=== PATIENT | male | born 1975 | race Two or more races ===

== ENCOUNTER 2020-09-13 16:12 | Emergency (ER) | payer SELFPAY ==
[~2020-09-13] VITALS: Ht 172.7 cm; Wt 75.0 kg
[2020-09-13 16:18] VITALS: Ht 172.7 cm; Wt 75.0 kg
[2020-09-13] MEDS ORDERED: BACTRIM DS TAB1 EAC1 PO (19:00)
[2020-09-13 19:23] VITALS: BP 144/94
== END 2020-09-13 19:36 | disposition home or self-care (01) ==
LOC: D.ER 16:12
DX: S62.635B Displaced fracture of distal phalanx of left ring finger, initial encounter for open fracture (principal); W23.0XXA Caught, crushed, jammed, or pinched between moving objects, initial encounter; Y93.9 Activity, unspecified; Y92.9 Unspecified place or not applicable

== ENCOUNTER 2020-09-20 12:22 | Emergency (ER) | payer SELFPAY ==
[~2020-09-20] VITALS: Ht 172.7 cm; Wt 84.1 kg
[~2020-09-20 12:22] MED LIST: BACTRIM DS TAB1 EAC1 PO
[2020-09-20 12:25] VITALS: BP 139/85; Ht 172.7 cm; Wt 84.1 kg
== END 2020-09-20 13:35 | disposition home or self-care (01) ==
LOC: D.ER 12:22
DX: Z48.02 Encounter for removal of sutures (principal)